=== PATIENT | female | born 1950 | race African-American/Black ===

== ENCOUNTER 2017-10-16 08:45 | Outpatient (CLI) | payer MEDICARE, MEDICAID ==
[~2017-10-16] VITALS: Ht 152.4 cm; Wt 69.0 kg
[2017-10-16] VITALS (7 sets, daily range): BP systolic 133–155; BP diastolic 73–89
[~2017-10-16 08:45] MED LIST: ATEN50TA9; BACL10TA; DICL100G15; ESTR0.3T3; FLUT16SP9; LEVE250T; NITR0.4T51 SL; POTA8TAB46; VALS1TAB79
[2017-10-16] MEDS ORDERED: regadenoson 0.4mg/5ml syringe IV ONE ×2 (10:10→10:40)
[2017-10-16] MEDS ORDERED: metoprolol tartrate 1mg/ml inj IV PRN (10:10)
[2017-10-16] MEDS ORDERED: nitroGLYCERIN 0.4mg SUBLingual tab SL PRN (10:10)
[2017-10-16] MEDS ORDERED: CAFFEINE CITRATE 60 MG/3 ML injection vial IV ONE (10:39)
== END 2017-10-16 23:59 | disposition home or self-care (01) ==
LOC: RAD 08:45
PROVIDERS: ATTEND Internal Medicine Cardiovascular Disease
DX: Z01.818 Encounter for other preprocedural examination (principal); I08.3 Combined rheumatic disorders of mitral, aortic and tricuspid valves; I10 Essential (primary) hypertension
CPT/HCPCS: 78452; 93017; 93306; A9500

== ENCOUNTER 2021-07-28 09:43 | Emergency (ER) | payer BC, MEDICAID ==
[~2021-07-28] VITALS: Ht 152.4 cm; Wt 68.0 kg
[~2021-07-28 09:43] MED LIST changes: -BACL10TA; +BACL10TA PO; -FLUT16SP9; +FLUT16SP9 NAS; -LEVE250T; +LEVE250T PO; -POTA8TAB46; +POTA8TAB46 PO; -VALS1TAB79; +VALS1TAB80
[2021-07-28 10:20] LABS: EOSINOPHILS # (AUTO) 0.2 X10'3 (0-0.9); EOSINOPHILS % (AUTO) 3.5 % (0-6); HEMATOCRIT 43.5 % (35.0-45.0); MONOCYTES % (AUTO) 12.1 % (2-12); NEUTROPHILS # (AUTO) 3.6 X10'3 (1.8-7.7)
[2021-07-28 10:21] LABS: BASOPHILS % (AUTO) 0.6 % (0-1); HEMOGLOBIN 14.6 g/dl (12.0-16.0); LYMPHOCYTES # (AUTO) 1.6 X10'3 (1.1-4.8); LYMPHOCYTES % (AUTO) 25.5 % (21-51); MEAN CORPUSCULAR HEMOGLOBIN 31.7 PG (27.0-31.0); MEAN CORPUSCULAR HGB CONC 33.6 g/dL (33.0-36.5); MEAN CORPUSCULAR VOLUME 94.2 FL (78-98); MEAN PLATELET VOLUME 11.1 FL (7.4-10.4); MONOCYTES # (AUTO) 0.8 X10'3 (0-0.9); NEUTROPHILS % (AUTO) 58.3 % (42-75); PLATELET COUNT 84 X10'3 (140-440); RED BLOOD COUNT 4.62 X10'6 (4.20-5.60); RED CELL DISTRIBUTION WIDTH 12.8 % (11.5-14.5); WHITE BLOOD COUNT 6.2 X10'3 (4.5-11.0)
[2021-07-28] MEDS ORDERED: AMLO-140 PO (10:48)
[2021-07-28] MEDS ORDERED: XAL0.005OS OP (10:48)
[2021-07-28] MEDS ORDERED: METO-411 PO (10:48)
[2021-07-28 11:04] LABS: LARGE PLATELETS MODERATE; PLATELET ESTIMATE DECREASED
[2021-07-28 11:28] LABS: URINE AMPHETAMINE SCREEN NEGATIVE (Neg); URINE BARBITUATE SCREEN NEGATIVE (Neg); URINE BENZODIAZEPINES SCREEN NEGATIVE (Neg); URINE CANNABINOID SCREEN NEGATIVE (Neg); URINE COCAINE SCREEN NEGATIVE (Neg); URINE METHADONE SCREEN NEGATIVE (Neg); URINE OPIATE SCREEN NEGATIVE (Neg); URINE PHENCYCLIDINE SCREEN NEGATIVE (Neg)
[2021-07-28 11:44] LABS: APTT 25 SECONDS (22-32)
[2021-07-28 12:13] LABS: ACETAMINOPHEN 45.5 UG/ML (10-30); ALANINE AMINOTRANSFERASE 42 U/L (12-78); ALBUMIN 3.6 G/DL (3.4-5.0); ALBUMIN/GLOBULIN RATIO 0.9 (1.1-1.5); ALKALINE PHOSPHATASE 54 IU/L (46-116); ANION GAP 11 (8-16); ASPARTATE AMINO TRANSFERASE 29 U/L (10-37); BILIRUBIN,TOTAL 0.4 MG/DL (0.1-1.0); BLOOD UREA NITROGEN 8 MG/DL (7-18); BUN/CREATININE RATIO 10.5 (6.6-38.0); CALCIUM 9.2 MG/DL (8.5-10.1); CHLORIDE 104 MMOL/L (99-107); CREATININE 0.76 MG/DL (0.40-0.90); ETHANOL < 0.010 GM/DL (0.0-0.010); GLUCOSE 115 MG/DL (70-104); POTASSIUM 3.9 MMOL/L (3.5-5.1); SODIUM 140 MMOL/L (135-145); TOTAL CARBON DIOXIDE 25.5 MMOL/L (24-32); TOTAL PROTEIN 7.4 G/DL (6.4-8.2); eGFR > 90 ML/MIN
--- NOTE | 2021-07-28 12:40 | NUR ---
Spoke with Vi at [facility] who states patient should be able to discharge home based on stated ingestion of 4225 mg acetaminophen this morning.
[2021-07-28 13:43] VITALS: BP 130/84
== END 2021-07-28 13:45 | disposition home or self-care (01) ==
LOC: ER 09:45
DX: T39.1X1A Poisoning by 4-Aminophenol derivatives, accidental (unintentional), initial encounter (principal); F41.9 Anxiety disorder, unspecified; D69.6 Thrombocytopenia, unspecified; I10 Essential (primary) hypertension; M19.90 Unspecified osteoarthritis, unspecified site; F17.210 Nicotine dependence, cigarettes, uncomplicated; Z90.710 Acquired absence of both cervix and uterus; Z98.51 Tubal ligation status; Z91.041 Radiographic dye allergy status; Z88.0 Allergy status to penicillin; Z79.899 Other long term (current) drug therapy; Y92.89 Other specified places as the place of occurrence of the external cause
CPT/HCPCS: 36415; 80053; 80305; 80320; 80329; 85008; 85025; 85610; 85730; 99283